=== PATIENT | female | born 1960 | race American Indian/Alaskan Native ===

== ENCOUNTER 2016-12-10 11:51 | Emergency (ER) | payer OTHER ==
[2016-12-10 12:27] VITALS: BP 142/79
[2016-12-10] MEDS ORDERED: TORADOL IM ONE (14:48)
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
== END 2016-12-10 15:52 | disposition home or self-care (01) ==
LOC: ED 11:51
DX: S16.1XXA Strain of muscle, fascia and tendon at neck level, initial encounter (principal); J45.909 Unspecified asthma, uncomplicated; V89.2XXA Person injured in unspecified motor-vehicle accident, traffic, initial encounter; Y93.89 Activity, other specified; Y99.9 Unspecified external cause status; Y92.410 Unspecified street and highway as the place of occurrence of the external cause
CPT/HCPCS: 72125; 96372; 99283; J1885